=== PATIENT | female | born 1985 | race Caucasian/White ===

== ENCOUNTER 2021-11-16 22:29 | Emergency (ER) | payer OTHER ==
[~2021-11-16] VITALS: Ht 170.2 cm; Wt 83.5 kg
[2021-11-16] MEDS ORDERED: MELATONIN10 M3 PO (22:39)
[2021-11-16 23:45] VITALS: BP 130/72
== END 2021-11-16 23:45 | disposition home or self-care (01) ==
LOC: EDBD 22:29 → ER 22:29
DX: R07.81 Pleurodynia (principal); F17.210 Nicotine dependence, cigarettes, uncomplicated; Z79.899 Other long term (current) drug therapy